=== PATIENT | female | born 1995 | race Caucasian/White ===

== ENCOUNTER 2016-09-02 19:58 | Emergency (ER) | payer OTHER ==
[2016-09-02 20:05] VITALS: RESP 18
--- NOTE | 2016-09-02 20:39 | ED ---
Chest Pain HPI - General Chief Complaint: Chest Pain Stated Complaint: Chest Pain Time Seen by Provider: 09/02/16 20:07 Source: patient, RN notes reviewed Mode of arrival: wheelchair Limitations: no limitations - History of Present Illness Initial Comments: Patient is a 20-year-old female presents to the emergency room for evaluation of chest pain. Patient states she has been having intermittent chest pain for the past year. Patient states she'll get an episode of midsternal chest pain that lasts about 1 minute for the past year. Patient states over the past week she's been having more increasing episodes of the chest pain throughout the week. Patient states prior to arrival she was sitting on a couch and had an episode of midsternal chest pain that was radiating to her left arm. Patient states she is no longer having chest pain. Patient states she is feeling short of breath. Patient states pain is worse when she takes a deep breath. Patient does state she smokes about one cigarette per day and is in the process of quitting. Patient states about 33 weeks . Patient denies any complications of so far. Patient denies recent illnesses or upper respiratory infections. Patient denies cough, headache, dizziness, throat pain , ear pain. - Related Data Home Medications Medication Instructions Recorded Confirmed Pediatric Multivit Comb #25/FA 2 tab PO DAILY 09/02/16 09/02/16 [Flintstones Multivit Chew Tab] Allergies Allergy/AdvReac Type Severity Reaction Status Date / Time No Known Allergies Allergy Verified 09/02/16 20:31 Review of Systems ROS Statement: Those systems with pertinent positive or pertinent negative responses have been documented in the HPI. ROS Other: All systems not noted in ROS Statement are negative. EKG Findings - EKG Comments: EKG Findings:: Normal sinus rhythm with sinus arryhthmia, ventricular rate 79 bpm, WI interval 148 ms, QRS duration 102 ms, QT/QTC 366/419 ms Past Medical History Past Medical History: No Reported History History of Any Multi-Drug Resistant Organisms: None Reported Past Surgical History: No Surgical Hx Reported Past Anesthesia/Blood Transfusion Reactions: No Reported Reaction Past Psychological History: No Psychological Hx Reported Smoking Status: Current some day smoker Past Alcohol Use History: None Reported Past Drug Use History: None Reported - Past Family History Mother Family Medical History: No Reported History General Exam - General Exam Comments Initial Comments: Sitting in exam room, no acute distress. Limitations: no limitations General appearance: alert, in no apparent distress Head exam: Present: atraumatic, normocephalic, normal inspection Eye exam: Present: normal appearance, PERRL, EOMI Pupils: Present: normal accommodation ENT exam: Present: normal exam Neck exam: Present: normal inspection Respiratory exam: Present: normal lung sounds bilaterally. Absent: respiratory distress Cardiovascular Exam: Present: regular rate, normal rhythm, normal heart sounds Extremities exam: Present: normal inspection Back exam: Present: normal inspection Neurological exam: Present: alert, oriented X3, CN II-XII intact, normal gait Psychiatric exam: Present: normal affect, normal mood Skin exam: Present: warm, dry, intact, normal color. Absent: rash Course Vital Signs 09/02/16 09/02/16 09/02/16 20:01 20:28 22:00 Temperature 98.8 F Pulse Rate 77 80 94 Respiratory 18 18 18 Rate Blood Pressure 133/74 131/74 121/74 O2 Sat by Pulse 99 98 99 Oximetry 09/02/16 23:00 Temperature 99.4 F Pulse Rate Respiratory Rate Blood Pressure O2 Sat by Pulse Oximetry Chest Pain MDM - MDM Patient is a 20-year-old female presents to the emergency room for evaluation of chest pain and mild shortness of breath. Patient is 33 weeks . heart tones within normal limits. Patient noted to have an elevated d- dimer. On reexamination, O2 sat between 97-100% on room air. Vitals are stable. Patient denies any current chest pain. Discussed results with patient. Patient refused CT for further evaluation of elevated d-dimer. Patient states she does have a history of acid reflux and had it with her previous pregnancies as well. Patient states she will follow-up with her OB/ LOAN SERVICE OFFICER and primary care provider for further evaluation. Patient states she understands everything that was discussed with her. Return parameters discussed. Case discussed with Dr. Mosley. Disposition Clinical Impression: Chest pain Disposition: HOME SELF-CARE Condition: Good Instructions: Chest Pain (ED) Additional Instructions: Please follow-up with CREDIT CONTROL OFFICER or primary care provider in 24-48 hours. If any new symptom arises or symptoms worsen, return to ER as soon as possible. Referrals: Delfino Young MD [Primary Care Provider] - 1-2 days Time of Disposition: 22:48
[2016-09-02 21:02] LABS: Basophils % (A) 0 %; CH 30.4; CHCM 34.4; Eosinophils # (A) 0.1 k/uL (0-0.7); Eosinophils % (A) 1 %; HCT 31.3 % (34.0-46.0); HDW 3.21; HGB 10.7 gm/dL (11.4-16.0); Luc # (Auto) 0.19; Luc % (Auto) 1; Lymphocytes # (A) 1.9 k/uL (1.0-4.8); Lymphocytes % (A) 13 %; MCH 30.4 pg (25.0-35.0); MCHC 34.2 g/dL (31.0-37.0); MCV 89.1 fL (80.0-100.0); Mean Platelet Volume 8.6; Monocytes # (A) 0.4 k/uL (0-1.0); Monocytes % (A) 3 %; Neutrophils # (A) 11.7 k/uL (1.3-7.7); Neutrophils % (A) 82 %; RBC 3.51 m/uL (3.80-5.40); RDW 14.2 % (11.5-15.5); WBC 14.4 k/uL (3.8-10.6); WBC (Perox) 15.55
[2016-09-02 21:07] LABS: Appearance,Urine Clear (Clear); Bacteria,Urine Occasional /hpf; Bilirubin,Urine Negative (Negative); Glucose,Urine (UA) Negative (Negative); Ketones,Urine Negative (Negative); Leukocyte Esterase,Urine Small (Negative); Mucus,Urine Rare /hpf; Nitrite,Urine Negative (Negative); Particle Count 6032; Protein,Urine Negative (Negative); RBC,Urine 1 /hpf (0-5); Specific Gravity,Urine 1.013 (1.001-1.035); Squamous Epithelial Cell,Urine 3 /hpf (0-4); UA Billing (MACRO vs. MICRO) MICRO; Urobilinogen,Urine <2.0 mg/dL (<2.0); WBC,Urine 2 /hpf (0-5)
[2016-09-02 21:11] LABS: ALT 27 U/L (9-52); AST 17 U/L (14-36); Alkaline Phosphatase 95 U/L (38-126); Anion Gap 8 mmol/L; Blood Urea Nitrogen 6 mg/dL (7-17); Calcium 8.5 mg/dL (8.4-10.2); Carbon Dioxide 24 mmol/L (22-30); Chloride 108 mmol/L (98-107); Glucose 82 mg/dL (74-99); Magnesium 1.7 mg/dL (1.6-2.3); Non-African American GFR(MDRD) >60 (>60 ml/min/1.73 sqM); Potassium 3.6 mmol/L (3.5-5.1); Sodium 140 mmol/L (137-145); Total Bilirubin 0.3 mg/dL (0.2-1.3); Total Protein 6.2 g/dL (6.3-8.2)
[2016-09-02 22:06] VITALS: BP 121/74; PULSE 94
[2016-09-02 23:06] VITALS: TEMP 99.4
== END 2016-09-02 23:00 | disposition home or self-care (01) ==
LOC: EC 19:58
DX: R07.9 Chest pain, unspecified (principal); O26.893 Other specified pregnancy related conditions, third trimester; Z3A.33 33 weeks gestation of pregnancy; O99.333 Smoking (tobacco) complicating pregnancy, third trimester; F17.210 Nicotine dependence, cigarettes, uncomplicated
CPT/HCPCS: 36415; 80053; 81001; 83735; 85025; 85379; 93005; 99285

== ENCOUNTER 2016-10-14 06:06 | Inpatient (IN) | payer OTHER ==
[2016-10-14] MEDS ORDERED: METHYLERGONOVINE 0.2 MG/ML 1 ML AMP IM PRN (06:10)
[2016-10-14] MEDS ORDERED: PENICILLIN G POTASSIUM 5,000,000 UNIT in DEXTROSE 5% IN WATER 100 ML IV STA ×2 (06:10)
[2016-10-14] MEDS ORDERED: CARBOPROST TROMETHAMINE 250 MCG/ML 1 ML AMP IM PRN (06:10)
[2016-10-14] MEDS ORDERED: TERBUTALINE 1 MG/ML VIAL SQ PRN (06:10)
[2016-10-14] MEDS ORDERED: OXYTOCIN 10 UNIT/ML 1 ML VIAL IM PRN (06:10)
[2016-10-14] MEDS ORDERED: LIDOCAINE 1% (PF) 10 MG/ML (30 ML SDV) SQ PRN (06:10)
[2016-10-14] MEDS ORDERED: OXYTOCIN 30 UNITS/500 ML NS 30 UNIT in SALINE 1 500ML.BAG IV SCH (06:15)
[2016-10-14 06:21] LABS: Basophils % (A) 0 %; CH 29.6; CHCM 33.7; Eosinophils # (A) 0.2 k/uL (0-0.7); Eosinophils % (A) 1 %; HCT 33.8 % (34.0-46.0); HGB 11.4 gm/dL (11.4-16.0); Luc # (Auto) 0.24; Luc % (Auto) 1; Lymphocytes # (A) 2.5 k/uL (1.0-4.8); Lymphocytes % (A) 14 %; MCH 29.8 pg (25.0-35.0); MCHC 33.8 g/dL (31.0-37.0); MCV 88.2 fL (80.0-100.0); Mean Platelet Volume 8.6; Monocytes # (A) 0.5 k/uL (0-1.0); Monocytes % (A) 3 %; Neutrophils # (A) 13.9 k/uL (1.3-7.7); Neutrophils % (A) 80 %; Poikilocytosis Slight; RBC 3.83 m/uL (3.80-5.40); RDW 14.7 % (11.5-15.5); WBC 17.3 k/uL (3.8-10.6); WBC (Perox) 18.12
[2016-10-14] MEDS: LACTATED RINGERS 1,000 ML IV SCH ×3 (06:21→12:36)
--- NOTE | 2016-10-14 06:50 | P.HPOB ---
History of Present Illness H&P Date: 10/14/16 Chief Complaint: Here for induction of labor This is a 20-year-old 4 para 2011 EDC 10/17/2016 at 39-4/7 weeks' gestation. Patient presents today for induction of labor. Fetus is been active. The . She is having mild spontaneous contractions approximately every 3-8 minutes apart. Fetus is been active. Obstetric history blood type is A+, rubella status immune. VDRL testing, urine culture, hepatitis B surface antigen, HIV testing all negative. Initial chlamydia cultures positive, treated with antibiotics and repeat cultures negative. Group B strep cultures positive. One-hour Glucola 107. Past medical history is essentially negative. Past surgical history wisdom teeth extracted in the past. ALLERGIES none known. Current medications vitamins daily. Social history patient is a smoker, she denies alcohol or drug use. She is not . She is requesting tubal sterilization. On exam this is a pleasant white female, 5 foot 5 inches, 200 pounds, blood pressure 126/76. Vital signs are stable and she is afebrile. The general physical exam is within normal limits. The cervix is 3 cm dilated, 60-70% effaced, -2 station, vertex presentation. Artificial amniorrhexis reveals clear fluid. heart rate is in the 140s with frequent accelerations, consistent with reactive NST. Uterine contractions are occurring every 4-8 minutes apart of mild to moderate intensity. Impression: 39-4/7 weeks intrauterine , here for induction of labor, all signs reassuring. Patient requesting tubal sterilization. Plan: Close maternal and surveillance. Oxytocin per hospital protocol. Patient will be kept nothing by mouth for tubal ligation. Anticipate normal spontaneous vaginal delivery and tubal sterilization. Penicillin G per hospital protocol for positive group B strep cultures. Past Medical History Past Medical History: No Reported History History of Any Multi-Drug Resistant Organisms: None Reported Past Surgical History: No Surgical Hx Reported Past Anesthesia/Blood Transfusion Reactions: No Reported Reaction Past Psychological History: No Psychological Hx Reported Smoking Status: Current every day smoker Past Alcohol Use History: None Reported Past Drug Use History: None Reported - Past Family History Mother Family Medical History: No Reported History Medications and Allergies Home Medications Medication Instructions Recorded Confirmed Type No Known Home Medications [No 10/08/16 10/14/16 History Known Home Medications] Allergies Allergy/AdvReac Type Severity Reaction Status Date / Time No Known Allergies Allergy Verified 10/14/16 06:10 Exam - Vital Signs Vital signs: Vital Signs Temp Pulse Resp BP Pulse Ox 10/14/16 06:13 97.0 F L 79 16 126/76 98 Intake and Output 10/13/16 10/13/16 10/14/16 14:59 22:59 06:59 Other: Weight 90.718 kg Patient Weight 10/14/16 06:59 Weight 90.718 kg Results Result Diagrams: 10/14/16 06:10 Abnormal Lab Results - Last 24 Hours (Table) 10/14/16 Range/Units 06:10 WBC 17.3 H (3.8-10.6) k/uL Hct 33.8 L (34.0-46.0) % Neutrophils # 13.9 H (1.3-7.7) k/uL
[2016-10-14] MEDS ORDERED: BUTORPHANOL 1 MG/ML 1 ML VIAL IV PRN (10:24)
[2016-10-14] MEDS: PENICILLIN G POTASSIUM 2,500,000 UNIT in DEXTROSE 5% IN WATER 100 ML IV SCH ×2 (11:32)
[2016-10-14] MEDS ORDERED: SODIUM CHLORIDE 0.9% 100 ML BAG ONE (12:10)
[2016-10-14] MEDS ORDERED: BUPIVACAINE (PF) 0.25% 30 ML VIAL ONE (12:10)
[2016-10-14] MEDS ORDERED: fentaNYL (PF) 50 MCG/ML 5 ML AMP ONE (12:10)
[2016-10-14] MEDS ORDERED: diphenhydrAMINE 25 MG CAP PO PRN (13:41)
[2016-10-14] MEDS ORDERED: LANOLIN CREAM 5 GM TUBE TOPICAL PRN (13:41)
[2016-10-14] MEDS ORDERED: ZOLPIDEM 5 MG TAB PO PRN (13:41)
[2016-10-14] MEDS ORDERED: HYDROCORTISONE 2.5% RECTAL CREAM 30 GM TUBE RECTAL PRN (13:41)
[2016-10-14] MEDS ORDERED: SIMETHICONE 80 MG CHEWABLE PO PRN (13:41)
[2016-10-14] MEDS ORDERED: BENZOCAINE/MENTHOL SPRAY 1 GM/SPRAY AEROSOL TOPICAL PRN (13:41)
[2016-10-14] MEDS ORDERED: ACETAMINOPHEN TAB 325 MG TAB PO PRN (13:41)
[2016-10-14] MEDS ORDERED: WITCH HAZEL 1 EACH MED..PAD TOPICAL PRN (13:41)
[2016-10-14] MEDS ORDERED: BISACODYL 10 MG SUPP RECTAL PRN (13:41)
[2016-10-14] MEDS ORDERED: diphenhydrAMINE 50 MG/ML 1 ML VIAL IVP PRN ×2 (13:41)
[2016-10-14] MEDS ORDERED: diphenhydrAMINE 50 MG CAP PO PRN (13:41)
--- NOTE | 2016-10-14 13:41 | P.PROBDLV ---
Vaginal Delivery Note - . Vaginal Delivery Note: This is a 20-year-old white female 4 para 2012 EDC 10/17/2016 at 39-4/7 weeks' gestation. Patient presented today for induction with favorable multiparous cervix. She originally had positive chlamydia cultures, treated and repeat culture negative. She is positive for group B streptococci's. VDRL is nonreactive. Please see admitting H&P for details. Artificial amniorrhexis revealed clear fluid. Oxytocin was started and titrated per hospital protocol. She became uncomfortable and requested epidural , this was placed without difficulty per the anesthesia team. She was judged to be completely dilated at 1315 hrs. and began the second stage of labor at that time. Perineal body was prepped and draped in usual sterile fashion. Excellent maternal expulsive efforts were noted. Infant's head crowned occiput anterior and he restituted accordingly. There was a nuchal cord 1 that was reduced. In delivering the anterior shoulder there was slight resistance, and therefore suprapubic pressure was applied. Infant shoulder then delivered easily. The oropharynx, nasopharynx, and external nares were all bulb suctioned. Patient was officially delivered of a liveborn male infant at 1323 hrs. Umbilical cord was doubly clamped and ligated, he was handed to waiting nurses for evaluation where scores of 7 and 9 at one and 5 minutes respectively were given. Uterus was massaged. Inspection of the cervix, vagina, perineum and periurethral areas revealed no lacerations and no defects. Total estimated blood loss 400 mL's. weighed 8 lbs. 10 oz. or 3935 g. They are requesting circumcision further infant son. She is also requesting tubal sterilization. She will be kept nothing by mouth, operating room is aware. We will head to the operating room shortly for this additional procedure.
[2016-10-14] MEDS ORDERED: IV FLUID CONTINUATION 1,000 ML IV ONE ×2 (13:57→13:58)
[2016-10-14] MEDS ORDERED: fentaNYL (PF) 50 MCG/ML 2 ML AMP ONE (14:12)
[2016-10-14] MEDS ORDERED: MIDAZOLAM 2 MG/2 ML VIAL ONE (14:12)
--- NOTE | 2016-10-14 14:36 | P.OP ---
Date of Procedure: 10/14/16 Preoperative Diagnosis: Undesired fertility Postoperative Diagnosis: Same Procedure(s) Performed: tubal sterilization utilizing Filshie clips Anesthesia: epidural Surgeon: Ankita Chavez Estimated Blood Loss (ml): 5 IV fluids (ml): 300 Urine output (ml): 0 Pathology: none sent Condition: stable Disposition: PACU Description of Procedure: Patient is brought to the operating suite where the previously placed labor epidural is topped off. She is positioned in the dorsal supine position. The abdomen is prepped and draped in usual sterile fashion. The appropriate timeout was performed to assure proper patient and procedural identification. The analgesia is checked and noted to be adequate. A small infraumbilical incision is made with a scalpel. This is carried down to the subcutaneous tissue. Fascia is isolated and scored. Peritoneal cavity is open. Uterus is placed in a lateral position. The left fallopian tube is grasped with my index finger and brought into the operative field, held gently with a Gagan clamp. Fimbriated and is visualized to assure proper placement. Filshie clip is placed in the isthmic portion of the tube with care to traverse the entire diameter of the tube into the mesosalpinx. The tube is gently placed back into the abdominal cavity. Same procedure is carried out on the right fallopian tube, again fimbriated and visualized for proper placement, clip placed entirely through the tube into the mesosalpinx. No ovarian abnormalities are noted. Fascia is closed in a running stitch using 0 Vicryl. 2-0 Vicryl is used to reapproximate subcutaneous tissue. 4-0 undyed Vicryl issues subcuticularly for final skin closure. Steri-Strips and Mastisol are applied to the wound. All sponge needle and enhancement counts are correct. Patient is brought back to recovery room in stable condition with a pulse of 74, respirations 16, 100% O2 saturation, blood pressure 108/60.
[2016-10-14] MEDS ORDERED: SODIUM CHLORIDE 0.9% 500 ML IV ONE (15:01)
[2016-10-14] MEDS ORDERED: KETOROLAC 30 MG/ML 1 ML VIAL IVP STA (15:55)
[2016-10-14] MEDS: Acetaminophen-Codeine 300-30mg TAB PO PRN ×2 (16:37→23:01)
[2016-10-14] MEDS: SENNOSIDES-DOCUSATE SODIUM 1 EACH TAB PO SCH (20:01)
[2016-10-14] MEDS: IBUPROFEN 600 MG TAB PO PRN (21:35)
[2016-10-15] MEDS: PENICILLIN G POTASSIUM 2,500,000 UNIT in DEXTROSE 5% IN WATER 100 ML IV SCH ×4 (00:34→00:35)
[2016-10-15] MEDS: Acetaminophen-Codeine 300-30mg TAB PO PRN ×2 (03:05→08:28)
--- NOTE | 2016-10-15 08:20 | P.DS ---
Providers Date of admission: 10/14/16 06:06 Expected date of discharge: 10/15/16 Attending physician: Ankita Chavez Primary care physician: Delfino Ramirez [facility] Course: This is a 20-year-old white female 4 para 2012 EDC 10/17/2016 at 39-4/7 weeks' gestation. Patient presented for induction with favorable multiparous cervix. is essentially unremarkable, group B strep cultures are positive. Please see my dictated history and physical for details. Artificial amniorrhexis revealed clear fluid. Oxytocin was started and titrated per hospital protocol. Patient went on to deliver a liveborn male infant with scores of 7 and 9 at one and 5 minutes respectively. There was a mild shoulder dystocia alleviated by suprapubic pressure. There was a nuchal cord 1 easily reduced. Intact perineal body not requiring suturing. Infant weight 3935 g or 8 lbs. 10 oz. Please see my dictated delivery note for details. Patient was taken to the operating room where a tubal sterilization was performed shortly after delivery. Please see separately dictated operative note. This morning she is doing well, she is voiding ambulating and passing flatus without difficulty. Vital signs are stable and she is afebrile. Fundus is firm and below the umbilicus, it is symmetric and nontender. The small infraumbilical incision is well approximated with Steri-Strips. There is minimal to moderate lochia rubra. Breasts are not engorged. Circumcision has been performed. Patient is being discharged home today in very good condition. She will follow-up with me in the office in 6 weeks. I have asked her to use [id number] ibuprofen products as needed for pain. She will call with any fevers shakes or chills, foul smelling or copious lochia , with the passage of large blood clots, or indeed with any difficulties or concerns. will follow up with board certified music therapist as directed. Patient Condition at Discharge: Good Plan - Discharge Summary Discharge Medication List No Known Home Medications [No Known Home Medications] 10/08/16 [History] Follow up Appointment(s)/Referral(s): Ankita Chavez MD [STAFF PHYSICIAN] - 6 Weeks Discharge Disposition: HOME SELF-CARE
[2016-10-15] MEDS: SENNOSIDES-DOCUSATE SODIUM 1 EACH TAB PO SCH (08:28)
[2016-10-15] MEDS: IBUPROFEN 600 MG TAB PO PRN (12:31)
[2016-10-15 15:33] VITALS: BP 119/66; PULSE 77; RESP 16; TEMP 97.2
== END 2016-10-15 16:40 | disposition home or self-care (01) | DRG 767 ==
LOC: 4FBP 06:06
PROVIDERS: ADMIT Obstetrics & Gynecology; ATTEND Obstetrics & Gynecology
PROC: 0UL70CZ Occlusion of Bilateral Fallopian Tubes with Extraluminal Device, Open Approach (ICD-10-PCS; 2016-10-14)
PROC: 3E033VJ Introduction of Other Hormone into Peripheral Vein, Percutaneous Approach (ICD-10-PCS; 2016-10-14)
PROC: 10907ZC Drainage of Amniotic Fluid, Therapeutic from Products of Conception, Via Natural or Artificial Opening (ICD-10-PCS; 2016-10-14)
PROC: 3E0S3NZ Introduction of Analgesics, Hypnotics, Sedatives into Epidural Space, Percutaneous Approach (ICD-10-PCS; 2016-10-14)
PROC: 10E0XZZ Delivery of Products of Conception, External Approach (ICD-10-PCS; principal; 2016-10-14 14:11)
DX: O99.824 Streptococcus B carrier state complicating childbirth (principal); F17.200 Nicotine dependence, unspecified, uncomplicated; O99.334 Smoking (tobacco) complicating childbirth; O98.319 Other infections with a predominantly sexual mode of transmission complicating pregnancy, unspecified trimester; O69.81X0 Labor and delivery complicated by cord around neck, without compression, not applicable or unspecified; O66.0 Obstructed labor due to shoulder dystocia; Z3A.39 39 weeks gestation of pregnancy; Z37.0 Single live birth; Z30.2 Encounter for sterilization
CPT/HCPCS: 85025; 88307

== ENCOUNTER 2018-03-02 12:02 | Emergency (ER) | payer OTHER ==
[2018-03-02 12:06] VITALS: BP 119/91; PULSE 94; RESP 20; TEMP 98.4
[2018-03-02] MEDS ORDERED: SULFAMETH-TMP DS STARTER PACK 2 TAB BTL PO STA (12:25)
--- NOTE | 2018-03-02 12:26 | ED ---
General Adult HPI - General Chief complaint: Skin/Abscess/Foreign Body Stated complaint: CYST Time Seen by Provider: 03/02/18 12:12 Source: patient, RN notes reviewed Mode of arrival: ambulatory Limitations: no limitations - History of Present Illness Initial comments: Patient 22-year-old female presented to the emergency room today with a chief complaint of an abscess to the lower abdomen. Patient states that this started 2 days ago. States that it started as a small pimple-like. Patient states that has not been draining. She states it is slightly larger. Patient is to pain locally. States she's never had similar in the past. Patient denies any recent fever, chills, shortness of breath, chest pain, back pain,nausea or vomiting, numbness or tingling, headaches or visual changes, or any other complaints. - Related Data Previous Rx's Medication Instructions Recorded Sulfamethox-Tmp 800-160Mg [Bactrim 1 tab PO Q12HR #20 tab 03/02/18 DS 800-160 mg] Allergies Allergy/AdvReac Type Severity Reaction Status Date / Time No Known Allergies Allergy Verified 03/02/18 12:05 Review of Systems ROS Statement: Those systems with pertinent positive or pertinent negative responses have been documented in the HPI. ROS Other: All systems not noted in ROS Statement are negative. Past Medical History Past Medical History: No Reported History History of Any Multi-Drug Resistant Organisms: None Reported Past Surgical History: No Surgical Hx Reported Past Anesthesia/Blood Transfusion Reactions: No Reported Reaction Past Psychological History: No Psychological Hx Reported Smoking Status: Current every day smoker Past Alcohol Use History: None Reported Past Drug Use History: None Reported - Past Family History Mother Family Medical History: No Reported History General Exam - General Exam Comments Initial Comments: General: The patient is awake and alert, in no distress, and does not appear acutely ill. Eye: Pupils are equal, round and reactive to light. Extra-ocular movements are intact. No nystagmus. There is normal conjunctiva bilaterally. No signs of icterus. Ears, nose, mouth and throat: There are moist mucous membranes and no oral lesions. Neck: The neck is supple, there is no tenderness or JVD. Gastrointestinal: Abdomen soft on palpation. No deep tenderness. Patient does have a superficial abscess to the lower abdomen midline. Measures approximately centimeter across. It is firm on palpation. No fluctuant head. Musculoskeletal: Normal ROM, no tenderness. Sensation intact. Strength 5/5. Pulses equal bilaterally 2+. Neurological: A&O x 3. CN II-XII intact, There are no obvious motor or sensory deficits. Coordination appears grossly intact. Speech is normal. Skin: Skin is warm and dry and no rashes. Abscess to lower abdomen measuring approximately a centimeter across. Psychiatric: Cooperative, appropriate mood & affect, normal judgment. Limitations: no limitations Course Vital Signs 03/02/18 12:04 Temperature 98.4 F Pulse Rate 94 Respiratory 20 Rate Blood Pressure 119/91 O2 Sat by Pulse 100 Oximetry Medical Decision Making - Medical Decision Making Options were discussed with the patient about trying to drain abscess here in the emergency room. The area is firm on palpation there is no abscess head. Patient has declined drainage at this time. She is advised warm compresses and will be started on antibiotics of Bactrim. She advised return if symptoms increase or worsen. Disposition Clinical Impression: Abdominal wall abscess Disposition: HOME SELF-CARE Instructions: Abscess (ED) Additional Instructions: Please use antibiotics as prescribed warm compresses as discussed. Please follow-up with family doctor in the next 2 days of symptoms have not improved. Please return to emergency room if the symptoms increase or worsen or for any other concerns. Prescriptions: Sulfamethox-Tmp 800-160Mg [Bactrim DS 800-160 mg] 1 tab PO Q12HR #20 tab Is patient prescribed a controlled substance at d/c from ED?: No Referrals: Delfino Young MD [Primary Care Provider] - 1-2 days Time of Disposition: 12:25
== END 2018-03-02 12:38 | disposition home or self-care (01) ==
LOC: EC 12:02
DX: L02.211 Cutaneous abscess of abdominal wall (principal); F17.200 Nicotine dependence, unspecified, uncomplicated
CPT/HCPCS: 99282

== ENCOUNTER 2019-06-02 09:38 | Emergency (ER) | payer OTHER ==
[2019-06-02 10:01] VITALS: BP 125/79; PULSE 103; RESP 18; TEMP 97.3
--- NOTE | 2019-06-02 10:32 | ED ---
General Adult HPI - General Chief complaint: Recheck/Abnormal Lab/Rx Stated complaint: Needs physical Time Seen by Provider: 06/02/19 10:05 Source: patient, RN notes reviewed, old records reviewed Mode of arrival: ambulatory Limitations: no limitations - History of Present Illness Initial comments: Patient is a 23-year-old female presents for symptoms today needing a physical for her new employer. Patient reports she is starting a employment with [employer]. She reports she's were discussed. Patient presents today needing physical. She denies any physical complaints. Patient states that she also has required have a TB test. I did discuss with Patient she is not able to have this at this time. Patient reports she is a smoker. She does not take any chronic medications. Patient denies any recent fever, chills, shortness of breath, chest pain, back pain, abdominal pain, nausea vomiting, numbness or tingling, dysuria or hematuria, constipation or diarrhea, headaches or visual changes, or any other current symptoms - Related Data Previous Rx's Medication Instructions Recorded Sulfamethox-Tmp 800-160Mg [Bactrim 1 tab PO Q12HR #20 tab 03/02/18 DS 800-160 mg] Allergies Allergy/AdvReac Type Severity Reaction Status Date / Time No Known Allergies Allergy Verified 06/02/19 10:01 Review of Systems ROS Statement: Those systems with pertinent positive or pertinent negative responses have been documented in the HPI. ROS Other: All systems not noted in ROS Statement are negative. Past Medical History Past Medical History: No Reported History History of Any Multi-Drug Resistant Organisms: None Reported Past Surgical History: No Surgical Hx Reported Past Anesthesia/Blood Transfusion Reactions: No Reported Reaction Past Psychological History: No Psychological Hx Reported Smoking Status: Current every day smoker Past Alcohol Use History: None Reported Past Drug Use History: None Reported - Past Family History Mother Family Medical History: No Reported History General Exam - General Exam Comments Initial Comments: alert and oriented 23-year-old female. No distress. Limitations: no limitations General appearance: alert, in no apparent distress Head exam: Present: atraumatic, normocephalic, normal inspection Eye exam: Present: normal appearance, PERRL, EOMI. Absent: scleral icterus, conjunctival injection, periorbital swelling ENT exam: Present: normal exam, mucous membranes moist Neck exam: Present: normal inspection. Absent: tenderness, meningismus, lympha denopathy Respiratory exam: Present: normal lung sounds bilaterally. Absent: respiratory distress, wheezes, rales, rhonchi, stridor Cardiovascular Exam: Present: regular rate, normal rhythm, normal heart sounds. Absent: systolic murmur, diastolic murmur, rubs, gallop, clicks GI/Abdominal exam: Present: soft, normal bowel sounds. Absent: distended, tenderness, guarding, rebound, rigid Extremities exam: Present: normal inspection, full ROM, normal capillary refill. Absent: tenderness, pedal edema, joint swelling, calf tenderness Back exam: Present: normal inspection Neurological exam: Present: alert, oriented X3, CN II-XII intact Psychiatric exam: Present: normal affect, normal mood Skin exam: Present: warm, dry, intact, normal color. Absent: rash Course Vital Signs 06/02/19 09:58 Temperature 97.3 F L Pulse Rate 103 H Respiratory 18 Rate Blood Pressure 125/79 O2 Sat by Pulse 99 Oximetry Medical Decision Making - Medical Decision Making 23-year-old female in general good health, with history of smoking. She presents today needing a physical for work. Patient informed we cannot get a TB test that she could follow up with health department. Discussed I will complete physical she has no signs of physical or mental limitations perform her duties. Patient understands treatment plan will comply. Return parameters were discussed. Disposition Clinical Impression: Normal physical exam Disposition: HOME SELF-CARE Condition: Good Instructions (If sedation given, give patient instructions): Normal Exam (ED) Additional Instructions: Patient advised follow-up with health department or urgent care regards to administration of TB test. Is patient prescribed a controlled substance at d/c from ED?: No Referrals: Delfino Young MD [Primary Care Provider] - 1-2 days Time of Disposition: 10:31
== END 2019-06-02 10:38 | disposition home or self-care (01) ==
LOC: EC 09:38
DX: Z00.00 Encounter for general adult medical examination without abnormal findings (principal); F17.200 Nicotine dependence, unspecified, uncomplicated
CPT/HCPCS: 99283

== ENCOUNTER 2019-06-04 22:08 | Emergency (ER) | payer OTHER ==
[2019-06-04 22:17] VITALS: BP 138/90; PULSE 92; RESP 18; TEMP 98.2
--- NOTE | 2019-06-04 22:38 | XR ---
EXAMINATION TYPE: XR chest 2V DATE OF EXAM: 06/04/2019 COMPARISON: NONE HISTORY: TB screening test. TECHNIQUE: Frontal and lateral views of the chest are obtained. FINDINGS: Heart and mediastinum are normal. Lungs are clear. Diaphragm is normal. Bony thorax and so ft tissues appear normal. IMPRESSION: Normal chest.
--- NOTE | 2019-06-04 22:53 | ED ---
General Adult HPI - General Chief complaint: Recheck/Abnormal Lab/Rx Stated complaint: Wants TB Test Time Seen by Provider: 06/04/19 22:18 Source: patient, family, RN notes reviewed, old records reviewed Mode of arrival: ambulatory Limitations: no limitations - History of Present Illness Initial comments: 23-year-old female patient presents to ED for chief complaint of requesting a TB test. Patient reports that she is starting a new job and was unable to obtain TB test form PCP. Denies any other complaint this time. Denies a chance of being . Systemic: Pt denies fatigue, fever/chills, rash. Pt denies weakness, night sweats, weight loss. Neuro: Pt denies headache, visual disturbances, syncope or pre-syncope. HEENT: Pt denies ocular discharge or irritation, otalgia, rhinorrhea, pharyngitis or notable lymphadenopathy. Cardiopulmonary: Pt denies chest pain, SOB, heart palpitations, dyspnea on exertion. Abdominal/GI: Pt denies abdominal pain, n/v/d. : Pt denies dysuria, burning w/ urination, frequency/urgency. Denies new onset urinary or bowel incontinence. MSK: Pt denies myalgia, loss of strength or function in extremities. Neuro: Pt denies new onset weakness, paresthesias. - Related Data Previous Rx's Medication Instructions Recorded Sulfamethox-Tmp 800-160Mg [Bactrim 1 tab PO Q12HR #20 tab 03/02/18 DS 800-160 mg] Allergies Allergy/AdvReac Type Severity Reaction Status Date / Time No Known Allergies Allergy Verified 06/04/19 22:17 Review of Systems ROS Statement: Those systems with pertinent positive or pertinent negative responses have been documented in the HPI. ROS Other: All systems not noted in ROS Statement are negative. Past Medical History Past Medical History: No Reported History History of Any Multi-Drug Resistant Organisms: None Reported Past Surgical History: No Surgical Hx Reported Past Anesthesia/Blood Transfusion Reactions: No Reported Reaction Past Psychological History: No Psychological Hx Reported Smoking Status: Current every day smoker Past Alcohol Use History: Occasional Past Drug Use History: None Reported - Past Family History Mother Family Medical History: No Reported History General Exam - General Exam Comments Initial Comments: Constitutional: NAD, AOX3, Pt has pleasant affect. HEENT: NC/AT, trachea midline, neck supple, no lymphadenopathy. Posterior pharynx non erythematous, without exudates. External ears appear normal, without discharge. Mucous membranes moist. Eyes PERRLA, EOM intact. There is no scleral icterus. No pallor noted. Cardiopulmonary: RRR, no murmurs, rubs or gallops, no JVD noted. Lungs CTAB in anterior and posterior nails. No peripheral edema. Abdominal exam: Abdomen soft and non-distended. Abdomen non-tender to palpation in all 4 quadrants. Bowel sounds active in LLQ. No hepatosplenomegaly. No ecchymosis Neuro: CN II-XII grossly intact. No nuchal rigidity. No raccon eyes, no zuniga sign, no hemotympanum. No cervical spinal tenderness. MSK: No posterior calf tenderness bilaterally, homans sign negative bilaterally. Posterior tibialis and radial pulse +2 bilaterally. Sensation intact in upper and lower extremities. Full active ROM in upper and lower extremities, 5/5 stregnth. Limitations: no limitations Course Vital Signs 06/04/19 22:11 Temperature 98.2 F Pulse Rate 92 Respiratory 18 Rate Blood Pressure 138/90 O2 Sat by Pulse 100 Oximetry Medical Decision Making - Medical Decision Making 23-year-old female patient presents to ED for chief complaint of requesting a TB test in order to start new job. Reports she is unable to obtain a test. Denies any complaints. Explained to the patient that we do not have TB test in the emergency department did offer patient a chest x-ray. Chest x-ray was negative. Patient was discharged was given information for primary care provider will return to ER condition worsens. Case discussed with Dr. Ocasio. Disposition Clinical Impression: Normal screening chest x-ray for tuberculosis, Normal chest x-ray Disposition: HOME SELF-CARE Condition: Stable Additional Instructions: Follow-up with primary care provider tomorrow. Return to ER if condition worsens in any way. Chest x-ray is normal, no signs of tuberculosis. Is patient prescribed a controlled substance at d/c from ED?: No Referrals: Delfino Young MD [Primary Care Provider] - 1-2 days
== END 2019-06-04 23:02 | disposition home or self-care (01) ==
LOC: EC 22:08
DX: Z11.1 Encounter for screening for respiratory tuberculosis (principal); F17.200 Nicotine dependence, unspecified, uncomplicated
CPT/HCPCS: 71046; 99283

== ENCOUNTER 2020-12-15 06:13 | Emergency (ER) | payer OTHER ==
[2020-12-15 06:21] VITALS: BP 109/74; PULSE 88; RESP 18; TEMP 97.9
[2020-12-15] MEDS ORDERED: LIDOCAINE 1% INJ 10MG/ML (20 ML MDV) SQ ONE (06:44)
[2020-12-15] MEDS ORDERED: Acetaminophen-Codeine 300-30mg TAB PO STA (07:09)
[2020-12-15] MEDS ORDERED: MORPHINE SULFATE 4 MG/ML SYRINGE IM STA (07:13)
[2020-12-15] MEDS ORDERED: SULFAMETH-TMP DS STARTER PACK 2 TAB BTL PO STA (07:57)
[2020-12-15] MEDS ORDERED: CEPHALEXIN 500MG STARTER PACK 4 CAP BTL PO STA (07:57)
[2020-12-15] MEDS ORDERED: ACET/COD 300 MG/30 MG STARTER PACK 6 TAB BTL PO STA (07:58)
--- NOTE | 2020-12-15 07:59 | ED ---
General Adult HPI - General Chief complaint: Skin/Abscess/Foreign Body Stated complaint: Abscess Time Seen by Provider: 12/15/20 06:36 Source: patient, RN notes reviewed Mode of arrival: ambulatory Limitations: no limitations - History of Present Illness Initial comments: 25-year-old female presents to the emergency room for chief complaint of abscess in the left arm. Patient reports they have been there for about 2 weeks now. She states it did drain one point but came back. Patient denies fevers. States that she has had an abscess here before.Patient has no other complaints at this time including shortness of breath, chest pain, abdominal pain, nausea or vomiting, headache, or visual changes. - Related Data Previous Rx's Medication Instructions Recorded Sulfamethox-Tmp 800-160Mg [Bactrim 1 tab PO Q12HR #20 tab 03/02/18 DS 800-160 mg] Penicillin V Potassium [Pen Vee K] 500 mg PO Q6H 10 Days #40 tablet 12/15/20 Sulfamethox-Tmp 800-160Mg [Bactrim 1 tab PO Q12HR #20 tab 12/15/20 DS 800-160 mg] Allergies Allergy/AdvReac Type Severity Reaction Status Date / Time No Known Allergies Allergy Verified 12/15/20 06:21 Review of Systems ROS Statement: Those systems with pertinent positive or pertinent negative responses have been documented in the HPI. ROS Other: All systems not noted in ROS Statement are negative. Past Medical History Past Medical History: No Reported History History of Any Multi-Drug Resistant Organisms: None Reported Past Surgical History: No Surgical Hx Reported Past Anesthesia/Blood Transfusion Reactions: No Reported Reaction Past Psychological History: No Psychological Hx Reported Smoking Status: Current every day smoker Past Alcohol Use History: Occasional Past Drug Use History: None Reported - Past Family History Mother Family Medical History: No Reported History General Exam Limitations: no limitations General appearance: alert, in no apparent distress Head exam: Present: atraumatic, normocephalic, normal inspection Eye exam: Present: normal appearance, PERRL, EOMI. Absent: scleral icterus, conjunctival injection, periorbital swelling ENT exam: Present: normal exam, mucous membranes moist Neck exam: Present: normal inspection. Absent: tenderness, meningismus, lymphadenopathy Respiratory exam: Present: normal lung sounds bilaterally. Absent: respiratory distress, wheezes, rales, rhonchi, stridor Cardiovascular Exam: Present: regular rate, normal rhythm, normal heart sounds. Absent: systolic murmur, diastolic murmur, rubs, gallop, clicks Extremities exam: Present: normal capillary refill (Capillary refill less than 2 seconds, radial pulse 2+.), other (There is a 3 cm x 2 cm abscess as well as a 1 cm x 2 cm abscess in the left axilla.). Absent: tenderness (Tenderness to the axilla with her 2 abscesses.), pedal edema, joint swelling, calf tenderness Course Vital Signs 12/15/20 06:17 Temperature 97.9 F Pulse Rate 88 Respiratory 18 Rate Blood Pressure 109/74 O2 Sat by Pulse 92 L Oximetry Procedures - Procedures Initial comment: Consent: Verbal consent obtained. Risks and benefits: risks, benefits and alternatives were discussed Type: abscess Location details: L axilla Size: 1x2 cm Anesthesia: local infiltration Local anesthetic: lidocaine 1% Anesthetic total: 2 ml Scalpel size: 11 blade using sterile technique Incision type: single straight Complexity: simple Drainage: purulent Drainage amount: moderate Patient tolerance: Patient tolerated the procedure well with no immediate complications - Incision & Drainage Consent Obtained: verbal consent Indication: abscess Site: other (axilla) Size (cm): 3 Anesthetic Used: lidocaine 1% Amount (mLs): 3 I&D Cleaning Method: Chloroprep Scalpel Used: #11 I&D Drainage Obtained: Blood Patient Tolerated Procedure: well, no complications Medical Decision Making - Medical Decision Making 25-year-old female presents for abscess left armpit. There are 2 abscesses. There is some surrounding erythema measuring approximately 4 cm the left arm. No spreading erythema down the torso. Patient was also evaluated by Dr Bates. Both abscesses were incised and drained. A marker was used to buffy 4 cm area of surrounding cellulitis. Patient was started on Keflex and Bactrim here in the emergency room. Prescription sent to her pharmacy as well. Discussed her to return parameters. Patient will also take Tylenol 3 for pain in addition with Motrin but will not drive while taking this. She will return for any worsening symptoms. Disposition Clinical Impression: Abscess Disposition: HOME SELF-CARE Condition: Good Instructions (If sedation given, give patient instructions): Abscess (ED), Warm Compress or Soak (ED) Additional Instructions: Take antibiotic as directed. Do warm compresses several times daily. Please follow up with primary care in 1-2 days. If redness is spreading or having worsening pain or swelling return to the emergency room. Prescriptions: Sulfamethox-Tmp 800-160Mg [Bactrim DS 800-160 mg] 1 tab PO Q12HR #20 tab Penicillin V Potassium [Pen Vee K] 500 mg PO Q6H 10 Days #40 tablet Is patient prescribed a controlled substance at d/c from ED?: No Referrals: Delfino Young MD [Primary Care Provider] - 1-2 days Time of Disposition: 07:57
== END 2020-12-15 08:09 | disposition home or self-care (01) ==
LOC: EC 06:13
DX: L02.414 Cutaneous abscess of left upper limb (principal); F17.200 Nicotine dependence, unspecified, uncomplicated; B95.62 Methicillin resistant Staphylococcus aureus infection as the cause of diseases classified elsewhere
CPT/HCPCS: 87070; 87205; 99283; 96372; 10060; J2270; J2001; 87077; 87186